=== PATIENT | female | born 1975 | race Caucasian/White ===

== ENCOUNTER 2017-02-12 12:53 | Emergency (ER) | payer BC ==
[~2017-02-12] VITALS: Ht 165.1 cm; Wt 74.8 kg
--- NOTE | 2017-02-12 13:01 | NUR ---
Patient to ER bed 03 to gown for evaluation. Side rails up. Report given to Rohan .
[2017-02-12 13:06] VITALS: BP_SYST 132
--- NOTE | 2017-02-12 13:09 | NUR ---
Dr Johnson at bedside examining patient
[2017-02-12] MEDS ORDERED: HYDROcodone/ACETAMIN 5-325 MG TAB (NORCO/ VICODIN) PO ONE (13:15)
[2017-02-12] MEDS ORDERED: KETOROLAC TROMETHAMINE 60 MG/2 ML VIAL IM ONE (13:15)
[2017-02-12] MEDS ORDERED: ONDANSETRON 4 MG ODT TAB PO ONE (13:15)
--- NOTE | 2017-02-12 13:18 | NUR ---
Pt off the unit for X-ray
--- NOTE | 2017-02-12 14:45 | NUR ---
Pt reports pain improved.Continuing to monitor.
[2017-02-12 14:55] VITALS: BP_SYST 130
--- NOTE | 2017-02-12 15:00 | NUR ---
Patient given written and verbal discharge instructions and verbalizes understanding. ER MD discussed with patient the results and treatment provided. Given copies of tests performed in ER. Patient in stable condition. ID arm band removed. IV catheter removed intact and dressing applied, no active bleeding. Rx of motrin,norco given. Patient educated on pain management and to follow up with PMD. Pain Scale 0. Opportunity for questions provided and answered.
== END 2017-02-12 14:55 | disposition home or self-care (01) ==
LOC: SED 12:53
DX: S22.42XA Multiple fractures of ribs, left side, initial encounter for closed fracture (principal); Z91.048 Other nonmedicinal substance allergy status; W51.XXXA Accidental striking against or bumped into by another person, initial encounter; Y93.72 Activity, wrestling; Y99.8 Other external cause status; Y92.89 Other specified places as the place of occurrence of the external cause
CPT/HCPCS: 71100; 81025; 96372; 99284; J1885; Q0162

== ENCOUNTER 2021-09-18 16:28 | Emergency (ER) | payer SELFPAY ==
[~2021-09-18] VITALS: Ht 165.1 cm; Wt 81.6 kg
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
--- NOTE | 2021-09-18 16:58 | NUR ---
DR EMERY AT BEDSIDE FOR EXAM
[2021-09-18] MEDS ORDERED: MORPHINE 4 MG INJ. 4 MG/ML VIAL IVP ONE (17:00)
[2021-09-18] MEDS ORDERED: NORMAL SALINE 5 ML DISP.SYRIN IVF SCH (17:00)
[2021-09-18 17:04] VITALS: BP_SYST 157
[2021-09-18 17:25] LABS: BASOPHILS % (AUTO) 0.2 % (0.0-2.0); EOSINOPHILS % (AUTO) 0.2 % (0.0-4.0); HEMATOCRIT 42.6 % (36-48); HEMOGLOBIN 14.5 g/dL (12.0-16.0); LYMPHOCYTES # (AUTO) 1.3 K/uL (1.0-5.5); LYMPHOCYTES % (AUTO) 14.7 % (20.5-51.5); MEAN CORPUSCULAR HEMOGLOBIN 30 pg (27-31); MEAN CORPUSCULAR HGB CONC 34 % (32-36); MEAN CORPUSCULAR VOLUME 90 fL (79.0-98.0); MONOCYTES # (AUTO) 0.4 K/uL (0.0-1.0); MONOCYTES % (AUTO) 4.8 % (1.7-9.3); NEUTROPHILS % (AUTO) 80.1 % (40.0-70.0); PLATELET COUNT (AUTO) 236 K/uL (130-430); RED BLOOD CELL COUNT(AUTO) 4.76 MIL/uL (4.2-6.2); RED CELL DISTRIBUTION WIDTH 12.9 % (9.0-15.0); WHITE BLOOD COUNT (AUTO) 8.8 K/uL (4.8-10.8)
[2021-09-18 17:42] LABS: CALCIUM 9.3 mg/dL (8.4-11.0); CREATININE 0.95 mg/dL (0.55-1.30); POTASSIUM 4.1 mmol/L (3.5-5.1)
[2021-09-18] MEDS ORDERED: KETAMINE 30 MG/3 ML SYRINGE IVP ONE (17:45)
[2021-09-18] MEDS ORDERED: PROPOFOL 200MG/ 20ML VIAL (DIPRIVAN) IV ONE (17:45)
[2021-09-18 17:47] LABS: ALBUMIN 4.4 g/dL (3.4-4.8); TOTAL BILIRUBIN 0.3 mg/dL (0.0-1.0)
--- NOTE | 2021-09-18 18:26 | NUR ---
DR EMERY AT BEDSIDE TO EXPLAIN CONSCIOUS SEDATION, PT REFUSES AND WILL GO AMA. CN INFORMED.
[2021-09-18] MEDS ORDERED: fentaNYL CITRATE/PF 100 MCG/2 ML AMP IVP ONE (18:30)
--- NOTE | 2021-09-18 18:38 | NUR ---
MEDICATED ORDERED, WILL CONT TO MONITOR.
--- NOTE | 2021-09-18 18:49 | NUR ---
Patient does not wish to proceed with medical care recommended by DR THOMAS. Patient given information related to possible complications, up to and including , which could occur as a result of leaving hospital at this time. Patient verbalizes understanding of risks involved leaving against medical advice. Patient has signed AMA form.
[2021-09-18 18:50] VITALS: BP_SYST 152
== END 2021-09-18 18:50 | disposition left against medical advice (07) ==
LOC: SED 16:28
DX: S52.502A Unspecified fracture of the lower end of left radius, initial encounter for closed fracture (principal); S52.602A Unspecified fracture of lower end of left ulna, initial encounter for closed fracture; Z88.8 Allergy status to other drugs, medicaments and biological substances; W55.12XA Struck by horse, initial encounter; Y93.89 Activity, other specified; Y92.89 Other specified places as the place of occurrence of the external cause; Y99.8 Other external cause status
CPT/HCPCS: 29125; 36415; 73090; 80053; 85025; 96374; 96375; 99284; J2270; J3010; J2704